=== PATIENT | female | born 1955 | race Caucasian/White ===

== ENCOUNTER 2017-09-02 18:45 | Emergency (ER) | payer OTHER ==
[~2017-09-02] VITALS: Ht 160 cm; Wt 79.4 kg
[2017-09-02] MEDS ORDERED: ARMOUR THYROID90 MG (19:01)
[2017-09-02] MEDS ORDERED: METFORMIN HCL500 MG (19:01)
== END 2017-09-02 22:21 | disposition home or self-care (01) ==
LOC: ER 18:45
DX: G44.209 Tension-type headache, unspecified, not intractable (principal)